=== PATIENT | female | born 1985 | race African-American/Black ===

== ENCOUNTER 2023-12-28 12:31 | Emergency (ER) | payer OTHER, SELFPAY ==
[2023-12-28 12:44] VITALS: BP 125/78; PULSE 84; RESP 16; TEMP 36.6; O2SAT 100
[2023-12-28 13:23] VITALS: BP 137/73; PULSE 76; RESP 16; O2SAT 100
[2023-12-28 13:28] LABS: BEDSIDEPREGUCG Negative (Negative)
[2023-12-28 13:39] LABS: Add Urine Microscopic? YES; Appearance Urine Cloudy (Clear); Bacteria Urine 1+ /hpf; Bilirubin Urine Negative (Negative); Blood Urine Negative (Negative); Color Urine Yellow (Yellow); Glucose Urine UA Negative (Negative); Ketones Urine Negative (Negative); Leukocyte Esterase Ur Negative LEU/UL (Negative); Nitrate Urine Negative (Negative); Non Pathogenic Casts 0-2; Protein Urine Negative (Negative); RBC Urine 0-2 /hpf (0-2); Specific Grav Ur 1.025 (1.001-1.035); Squamous Epithelial Cell Urine Occasional /hpf (Few); Urobilinogen Urine 0.2 mg/dL (<2.0); WBC Urine 0-5 /hpf (0-3); pH Urine 5.5 (5.0-9.0)
--- NOTE | 2023-12-28 13:58 | ED.BACK ---
HPI - Back Pain/Injury General Chief Complaint: Back Pain/Injury Stated Complaint: near syncope Time Seen by Provider: 12/28/23 13:58 Source: patient, RN notes reviewed and other ( and daughter) Mode of arrival: EMS Limitations: no limitations History of Present Illness HPI Narrative: patient presents with complaint of acute left lower side back pain and spasm which felt like she pulled something when she stood up getting off the couch after playing Monopoly. she notes that the pain was so intense that her vision turned black and check heard and her breathing was briefly shallow and she nearly fainted. She denies any dysuria, hematuria, urgency, or frequency. Patient states she had this previously in July and saw her primary care physician in October who had ordered x-ray imaging. she requested that the order be sent to [facility] as she works in medical records for [employer] but she is unsure if that ever took place and she never followed up on having imaging performed. She notes that this pain seems to only happen when she is seated. Pain is worse when she bends or moves. She denies it radiating now although she states at that time she felt like it went everywhere. she has not yet taken anything for pain. She denies any paresthesias, incontinence of bowel or bladder, fever, steroid use, IV drug use. No recent trauma or injury. Related Data Allergies Allergy/AdvReac Type Severity Reaction Status Date / Time No Known Allergies Allergy Verified 12/28/23 13:27 [facility] Social History Social History (Updated 12/29/23 @ 20:05 by Leslie Blanton MD) Smoking status: Never smoker Alcohol intake: current Other substance usage details: denies IVDU Living arrangements: with family Occupation/Education: occupation Additional occupation/education comments: Medical records for [employer] Exam Narrative: GENERAL: Well-appearing, well-nourished, and in no acute distress. HEAD: Normocephalic, atraumatic. EYES: Non injected, non icteric ENT: Nares clear, no rhinorrhea or epistaxis. NECK: Supple. CHEST: Speaking in full sentences. No respiratory distress. HEART: Regular rate and rhythm. . ABDOMEN: Soft, nondistended. Obese. BACK: No midline tenderness to palpation in Thoracic or lumbar spine. No bony step-offs. patient is able to demonstrate some flexion and extension as well as rotational movement and side bends the lumbar spine although she does that she has some pain with extension. No CVA tenderness Bilaterally. straight leg test negative bilaterally. EXTREMITIES: Normal range of motion. No lower extremity edema. SKIN: Warm, dry, no rash. NEURO: No focal deficits. Alert and oriented x3. Sensation intact throughout bilateral calves and proximal legs. 5/5 strength with bilateral dorsiflexion, plantar flexion, knee flexion extension, hip flexion/ abduction/ adduction. PSYCH: Normal mood and affect. Course Vital Signs Vital signs: Vital Signs Temperature 97.8 F 12/28/23 12:44 Pulse Rate 84 12/28/23 12:44 Respiratory Rate 16 12/28/23 12:44 Blood Pressure 125/78 12/28/23 12:44 Pulse Oximetry 100 12/28/23 12:44 Oxygen Delivery Room Air 12/28/23 12:44 Temperature 97.8 F 12/28/23 12:44 Pulse Rate 78 12/28/23 15:04 Respiratory Rate 16 12/28/23 15:04 Blood Pressure 114/62 12/28/23 15:04 Pulse Oximetry 100 12/28/23 15:04 Oxygen Delivery Room Air 12/28/23 13:23 MDM - Back Pain/Injury MDM Narrative Medical decision making narrative: patient presents via EMS with complaint of acute onset left low side back pain and spasm that was so intense that she felt like her vision changed briefly and she nearly (but did not) fainted. In the emergency department they are afebrile with vital signs within normal limits. test negative. Back has no deformities, external skin changes, or signs of trauma. Curvature is within normal limits. No tenderness is noted on palpation of the spinous processes which are midline. Lumbar paraspinal muscles are not tender under without spasm. Patient demonstrates flexion, extension, and [id number] rotation of the lumbar spine. Sensation to the lower extremities is normal bilaterally. Dorsi/plantar flexion is normal bilaterally. Straight leg raise test is negative bilaterally. They do not have any other red flags for fracture, malignancy, infection (e.g. spinal epidural abscess), or aortic/vascular: Age, no trauma, not on chronic steroids, no fever, IV drug use, HIV, immunosuppression, syncope, or urinary symptoms. Given this, will defer further imaging at this time. Patient does have 1+ bacteria on UA but also with occasional squamous cells and without other indicators of infection and she is otherwise asymptomatic without report of dysuria, hematuria, urgency, or frequency. For this reason, will defer prescribing antibiotics and await urine culture. This appears to be musculoskeletal in we discussed multimodal pain regimen strategy and natural expected progression. advised follow-up with her primary care physician and balance the pain medications to allow rest as well as performing stretching exercises and staying active. Lab Data Labs: Lab Results 12/28/23 12/28/23 Range/Units 13:27 13:28 Urine Color Yellow (Yellow) Urine Appearance Cloudy H (Clear) Urine pH 5.5 (5.0-9.0) Ur Specific Emmet 1.025 (1.001-1.035) Urine Protein Negative (Negative) mg/dL Urine Glucose (UA) Negative (Negative) mg/dL Urine Ketones Negative (Negative) mg/dL Ur Blood (Man) Negative (Negative) Urine Nitrate Negative (Negative) Urine Bilirubin Negative (Negative) Urine Urobilinogen 0.2 (<2.0) mg/dL Leukocyte Esterase Rfl Negative (Negative) JESSICA/UL Urine RBC 0-2 (0-2) /hpf Urine WBC 0-5 (0-3) /hpf Ur Squamous Epith Cells Occasional (Few) /hpf Urine Bacteria 1+ H /hpf Urine Casts 0-2 POC Urine HCG, Qual Negative (Negative) Discharge Plan Discharge Clinical Impression: Strain of lumbar region, Bacteriuria Patient Disposition: Home, Self-Care Condition: Stable Instructions: Antibiotic Form, Low Back Strain (ED), Acute Low Back Pain (ED), Lower Back Exercises (ED) Additional Instructions: As we discussed, this is very likely musculoskeletal in nature and will trial a multimodal pain regimen that will allow you to balance some rest but also staying active and performing stretching exercises. If symptoms not improving in the next 5-7 days, follow-up with your primary care physician. Return to the emergency department with any new or worsening symptoms. You did have some evidence of bacteria in your urine but without other markers of infection in your otherwise asymptomatic. The urine will be cultured in the lab and if there is evidence of actual bacteria growth, you will receive a phone call indicating that you need to be on antibiotics but we will defer this at this time. Prescriptions: New methocarbamol 750 mg tablet 1,500 mg PO HS Qty: 14 0RF ibuprofen 600 mg tablet 600 mg PO TID PRN (Reason: pain) Qty: 30 0RF acetaminophen 500 mg capsule 1,000 mg PO Q6H PRN (Reason: pain) Qty: 30 0RF lidocaine 4 % adhesive patch,medicated 1 patch topical DAILY PRN (Reason: pain) Qty: 5 0RF Follow-up/Referrals: Zev,MD Danyel [Non-Staff] - Stand Alone Forms: Work/School Release IP Time of Disposition: 14:48
[2023-12-28] MEDS: HYDROcodone/acetaminophen (*CRX) 5-325 MG TABLET 1 TAB PO (14:51)
[2023-12-28] MEDS: KETOROLAC 30 MG/ML VIAL (*BKC) 15 MG IM (14:52)
[2023-12-28] MEDS: LIDOCAINE 5% PATCH 1 PATCH TRANSDERM (14:52)
[2023-12-28 15:04] VITALS: BP 114/62; PULSE 78; RESP 16; O2SAT 100
== END 2023-12-28 15:05 | disposition home or self-care (01) ==
PROVIDERS: Emergency Medicine; Emergency Provider Student in an Organized Health Care Education/Training Program
DX: S39.012A Strain of muscle, fascia and tendon of lower back, initial encounter (principal); R82.71 Bacteriuria; X50.9XXA Other and unspecified overexertion or strenuous movements or postures, initial encounter
CPT/HCPCS: 81001; 81025; 87086; 96372; 99283; A9270; J1885